=== PATIENT | male | born 1965 | race Caucasian/White ===

== ENCOUNTER 2017-03-20 07:15 | Inpatient (IN) | payer OTHER ==
[2017-03-20] MEDS ORDERED: SURGIFLO MATRIX KIT WITH THROMBIN TP ONE (08:14)
[2017-03-20] MEDS ORDERED: THROMBIN (BOVINE) 20,000 UNIT VIAL TP ONE (08:14)
[2017-03-20] MEDS ORDERED: BACITRACIN 50,000 UNITS/10 ML SYR IRR ONE (08:15)
[2017-03-20] MEDS ORDERED: ceFAZolin 2 GM/DEXTROSE 100 ML IV ONE (09:00)
[2017-03-20] MEDS ORDERED: PROPOFOL/EMULSION 500 MG/50 ML BOTTLE IV ONE ×3 (09:39→12:58)
[2017-03-20] MEDS ORDERED: REMIFENTANIL HCL 1 MG VIAL ONE ×4 (09:40→13:59)
[2017-03-20] MEDS ORDERED: HYDROmorphONE/DILAUDID 2 MG/ML INJ ONE (09:45)
[2017-03-20] MEDS ORDERED: LR 1,000 ML IV ONE (10:04)
[2017-03-20] MEDS ORDERED: NON-FORMULARY NEW DRUG (Valacyclovir Hcl [Valtrex] 1,000 MG) PO PRN (10:48)
[2017-03-20] MEDS ORDERED: BISACODYL 10 MG SUPP PR PRN (10:49)
[2017-03-20] MEDS ORDERED: diphenhydrAMINE 25 MG CAP PO PRN (10:49)
[2017-03-20] MEDS ORDERED: LACTULOSE 20 GM/30 ML UDCUP PO PRN (10:49)
[2017-03-20] MEDS ORDERED: ACETAMINOPHEN 325 MG TAB PO PRN (10:49)
[2017-03-20] MEDS ORDERED: MAGNESIUM HYDROXIDE 30 ML UDCUP PO PRN (10:49)
[2017-03-20] MEDS ORDERED: POLYETHYLENE GLYCOL 3350 17 GM PKT PO PRN (10:49)
[2017-03-20] MEDS ORDERED: DIAZEPAM 10 MG/2 ML SYR IVP PRN (10:49)
[2017-03-20] MEDS ORDERED: ONDANSETRON DISINTEGRATING 4 MG TAB PO PRN (10:49)
[2017-03-20] MEDS ORDERED: ONDANSETRON 4 MG/2 ML VIAL IVP PRN (10:49)
[2017-03-20] MEDS ORDERED: NS W/ 20 KCl/L 1,000 ML IV SCH (11:00)
[2017-03-20] MEDS ORDERED: valACYclovir 500 MG TAB PO PRN (12:02)
[2017-03-20] MEDS ORDERED: DEXAMETHASONE 4 MG/ML VIAL ONE ×2 (12:58)
[2017-03-20] MEDS ORDERED: ONDANSETRON 4 MG/2 ML VIAL ONE (12:58)
[2017-03-20] MEDS ORDERED: SUCCINYLCHOLINE CHLORIDE*ANESTHESIA ONLY*200 MG/10 ML SYR IVP ONE (12:58)
[2017-03-20] MEDS ORDERED: LIDOCAINE 2% 5 ML SDV ONE (12:59)
--- NOTE | 2017-03-20 14:36 | POSTOPPROG ---
Post Op Note Date of Operation: 03/20/17 Surgeon: Tomas Mace Credit Advisor: Lola Fernando PAC Anesthesia: GET(General Endotracheal) Pre-op Diagnosis: cervical stenosis Post-op Diagnosis: Cervical stenosis Indication: cervical stenosis Procedure: ACDF C4/5, C7/T1, removal and exploration of prior plate C5-7 Inf/Abcess present in the surg proc area at time of surgery?: No EBL: Minimal Drains: Hemovac, Curt Wheeler PA Addendum - Addendum .: S: Denies any pain, scratchy throat O: NAD A&Ox3 MAEx4, 5/5 and equal in BUE and BLE except bilateral triceps 4/5, city sanitarian 5-/5 Neck soft, supple no edema a/p ACDF C4/5, C7/T1, removal and exploration of prior plate C5-7 -Optmize pain management -Advance diet as tolerated -PT/OT -Post op xrays pending -NADIRA x1 -DVT prophx: TEDs, SCDs, Lovenox okay POD3 -Please notify NS with any change in neuro/motor exam
[2017-03-20] MEDS ORDERED: HYDROmorphONE/DILAUDID 1 MG/ML SYR ONE (14:45)
[2017-03-20] MEDS ORDERED: fentaNYL 100 MCG/2 ML INJ ONE (14:45)
[2017-03-20] MEDS: oxyCODONE IR 5 MG TAB PO PRN ×2 (16:08→20:04)
[2017-03-20] MEDS: FAMOTIDINE 20 MG TAB PO SCH (20:04)
[2017-03-20] MEDS: SENNOSIDES/DOCUSATE SODIUM TAB PO SCH (20:04)
[2017-03-20 20:33] VITALS: RESP 16
[2017-03-20] MEDS ORDERED: FAMOTIDINE 20 MG/NACL 50 ML IV SCH (21:00)
[2017-03-20] MEDS: DIAZEPAM 5 MG TAB PO PRN (22:01)
[2017-03-21] MEDS: oxyCODONE IR 5 MG TAB PO PRN ×3 (00:16→09:13)
[2017-03-21] MEDS: DIAZEPAM 5 MG TAB PO PRN (04:46)
[2017-03-21] MEDS: FAMOTIDINE 20 MG TAB PO SCH (08:28)
[2017-03-21] MEDS: SENNOSIDES/DOCUSATE SODIUM TAB PO SCH (08:28)
[2017-03-21 08:34] VITALS: BP 127/87; PULSE 78; TEMP 98.2; O2SAT 95
--- NOTE | 2017-03-21 08:40 | NEUSURGPN ---
Assessment/Plan: 51 ACDF C4/5, C7/T1, removal and exploration of prior plate C5-7 POD1 -Optmize pain management -Advance diet as tolerated -PT/OT -Post op xrays pending -d/c NADIRA today -DVT prophx: TEDs, SCDs, Lovenox okay POD3 -Please notify NS with any change in neuro/motor exam Subjective: Strength improved. mild dysphagia Objective: NAD A&Ox3 MAEx4 5/5 and equal in BUE and BLE. Incision c/d/i. - Physician Patient Seen by DrBarrett: [facility] Physical Exam - Vitals, I&O, Labs I and O 03/20/17 03/21/17 03/22/17 05:59 05:59 05:59 Intake Total 2800 Output Total 67 Balance 2733 Weight 77.111 kg Intake: Oral (ml) 800 IV Intake (ml) 1000 IV Infused (ml) 1000 NS W/ 20 KCl/L 1,000 ml @ 950 75 mls/hr IV CONT BRANDI Rx #:[id number] ceFAZolin 1 GM/DEXTROSE 50 50 ml @ 200 mls/hr IV Q8HRS BRANDI Rx#:[id number] Output: Estimated Blood Loss (ml) 30 Wound Drainage (ml) 37 Anterior Neck Curt 37 Wheeler Other: Number of Voids Toilet 1 Vital Signs Temp Pulse Resp BP Pulse Ox 36.8 C 78 16 127/87 H 95 03/21/17 08:34 03/21/17 08:34 03/21/17 08:34 03/21/17 08:34 03/21/17 08:34 ICD10 Worksheet Patient Problems: Problems Problem Status Onset Cervical stenosis of spinal canal Acute - ICD10 Problem Qualifiers (1) Cervical stenosis of spinal canal
--- NOTE | 2017-03-21 13:12 | GOP ---
[f rep st] OPERATIVE REPORT DATE OF OPERATION: 03/20/2017 SURGEON: Tomas Mace MD WELDER GUN: NOREEN Navas ANESTHESIA: General. PREOPERATIVE DIAGNOSIS: 1. History of prior cervical fusion C5 through C7 with adjacent level breakdown and spinal stenosis C4-C5 and lateral recess and foraminal stenosis at C7-T1. 2. Cervicalgia, radiculopathy and weakness. 3. Treatment refractory to nonoperative intervention. POSTOPERATIVE DIAGNOSIS: 1. History of prior cervical fusion C5 through C7 with adjacent level breakdown and spinal stenosis C4-C5 and lateral recess and foraminal stenosis at C7-T1. 2. Cervicalgia, radiculopathy and weakness. 3. Treatment refractory to nonoperative intervention. PROCEDURE PERFORMED: I. 1. Anterior arthrodesis with approach to C4, C5, C6, and C7. 2. Exploration of prior cervical hardware C5, C6, C7 with subsequent hardware removal. 3. C4-C5 diskectomy with bilateral foraminotomies, osteophytectomies, and interbody fusion using a 7 mm Cornerstone allograft cage filled with morselized autograft and allograft. 4. Anterior cervical fusion C4-C5 with a 17 mm Medtronic ZEVO plate. II. 5. Anterior arthrodesis with approach to C7-T1 through a separate skin incision. 6. C7-T1 diskectomy with bilateral foraminotomies, osteophytectomy and interbody fusion using a 7 mm Cornerstone allograft cage filled with morselized allograft and autograft. 7. Anterior cervical fusion C7-T1 with a Medtronic 17 mm ZEVO plate. 8. Use of intraoperative fluoroscopy, less than 1 hour physician time. 9. Use neuromonitoring. 10. Use of the operating microscope. FINDINGS: per imaging SPECIMENS: None. ESTIMATED BLOOD LOSS: 30 mL. INDICATIONS: The patient has undergone a prior anterior cervical fusion C5 through C7 approximately 13-14 years ago from which he did quite well. He presented with worsening neck pain, arm weakness and radiculopathy. He had evidence of adjacent level breakdown with severe spinal stenosis C4-C5 as well as foraminal stenosis C7-T1. After discussion of the risks, benefits, and alternatives after failing nonoperative interventions, we decided to proceed forth with surgery as described above. This was completed as 2 separate skin incisions given the distance of the surgical approaches needed. DESCRIPTION OF PROCEDURE: The patient was brought to the operating theater and underwent general endotracheal anesthesia without complications. Venodynes, ELIN hose, and the appropriate lines were placed by Anesthesia. His head was maintained supine on the operating table in slight extension. Using lateral fluoroscopy and 2 spinal needles we then picked our entry point that gave us the best approach as 2 separate horizontal incisions to the C4-C5 and C7-T1 levels. This was marked as 2 separate incisions on the right side of his neck. Both areas were prepped and draped in the usual sterile surgical fashion. A time -out was completed per protocol. The patient received antibiotics within 1 hour of incision. The C4-C5 incision was taken down with the scalpel blade and using monopolar taken down through subcutaneous tissues to the level of the platysma. The platysma was over-mined in the cranial and caudal directions. We opened the fibers of the platysma cranially and caudally. Using sharp and blunt dissection , we traveled in a plane medial to the carotid sheath and lateral to the esophagus and trachea until we reached the prevertebral fascia. We were able identify the superior aspect of the plate at C5 and we subsequently removed the scar tissue along the anterior plate of C5, C6 and C7. There was good bony growth throughout during the exploration of this hardware and we felt he was solidly fused. We then sequentially removed the locking and cap screws from the old Codman plate at C5, C6 and C7 and passed the hardware off the field. We moved up to C4-C5 where we dissected the longus coli muscle from the anterior vertebral bodies of C4 and C5. Deep retractors were placed to maintain our exposure and the microscope was brought onto field to assist with microscopic dissection and to maintain illumination and magnification. We then placed a Cheshire pin into the vertebral body of C4 and C5 and placed C4- C5 into mild distraction. We completed a C4-C5 diskectomy with bilateral foraminotomies and osteophytectomies. We prepared the cartilagenous endplates and measured interbody space. We placed a 7 mm Cornerstone bone allograft filled with morselized autograft and allograft into the C4-C5 disc space. We removed the Jett pins and drilled down the anterior osteophytes. We then secured a 17 mm Medtronic ZEVO plate onto the vertebral bodies of C4 and C5. Lateral x-rays demonstrated good placement of the hardware. We obtained hemostasis with bipolar and the wound was irrigated copiously with bacitracin irrigation. We then closed the wound in multiple layers using Vicryl sutures to deep layers and Dermabond for skin. Next we moved down to the C7-T1 level where we incised the second skin marking with a scalpel blade and dissected down to the level of the platysma. The platysma was over-mined in the cranial and caudal direction and a Weitlaner placed to maintain our exposure. We opened the fibers of the platysma then used blunt and sharp dissection to travel through the previous scar tissue planes to the anterior vertebral bodies of C7 and T1. We elevated the longus colli muscles from the anterior vertebral bodies of C7 and T1 and placed deep retractors to maintain our exposure. We again confirmed our level using lateral fluoroscopy in an oblique manner. At this point, we placed Cheshire pins into C7 and T1 and placed C7-T1 into mild distraction. We completed a C7-T1 diskectomy with bilateral foraminotomies and osteophytectomies and prepared the cartilaginous endplates. We measured the interbody space and placed a 7 mm Cornerstone bone allograft filled with morselized autograft and allograft into the C7-T1 level. We removed the Cheshire pins and drilled down the anterior osteophytes. We secured a 17 mm Medtronic ZEVO plate onto the vertebral bodies of C7-T1. Oblique and AP x-rays demonstrated good placement of the hardware. We obtained hemostasis and a drain was left in the subfascial space. The wound was closed in multiple layers using Vicryl sutures for the deep layers and Dermabond for skin. The patient's wounds were dressed sterilely. He was awakened, extubated and taken to the recovery room in stable condition. There were no complications and no noted changes on neuromonitoring throughout the procedure. COMPLICATIONS: None. /[id number]/MODL MTDD
== END 2017-03-21 13:11 | disposition home or self-care (01) | DRG 473 ==
LOC: F3N 09:12
PROVIDERS: ADMIT Neurological Surgery; ATTEND Neurological Surgery
PROC: 0RB50ZZ Excision of Cervicothoracic Vertebral Disc, Open Approach (ICD-10-PCS; principal; 2017-03-20 10:45)
PROC: 0RG10AJ Fusion of Cervical Vertebral Joint with Interbody Fusion Device, Posterior Approach, Anterior Column, Open Approach (ICD-10-PCS; principal; 2017-03-20 10:45)
PROC: 0RB30ZZ Excision of Cervical Vertebral Disc, Open Approach (ICD-10-PCS; principal; 2017-03-20 10:45)
PROC: 0RP10AZ Removal of Interbody Fusion Device from Cervical Vertebral Joint, Open Approach (ICD-10-PCS; principal; 2017-03-20 10:45)
PROC: 0RG40AJ Fusion of Cervicothoracic Vertebral Joint with Interbody Fusion Device, Posterior Approach, Anterior Column, Open Approach (ICD-10-PCS; principal; 2017-03-20 10:45)
DX: M47.22 Other spondylosis with radiculopathy, cervical region (principal); M48.02 Spinal stenosis, cervical region
CPT/HCPCS: 92610-GN; 97161-GP; 97165-GO; C1713; J0330; J0690; J1100; J1170; J2405; J2704; J3010